=== PATIENT | male | born 1970 | race Caucasian/White ===

== ENCOUNTER 2025-09-06 20:20 | Emergency (ER) | payer OTHER ==
[~2025-09-06] VITALS: Ht 167.6 cm; Wt 74.8 kg
[2025-09-06 20:58] LABS: PLATELET COUNT (AUTO) 302 K/uL (152-348); RED BLOOD CELL COUNT(AUTO) 4.39 MIL/uL (4.06-5.63); RED CELL DISTRIBUTION WIDTH 13.6 % (12.1-16.2); WHITE BLOOD COUNT (AUTO) 4.6 K/uL (3.6-10.2)
[2025-09-06 21:00] VITALS: BP 128/77
[2025-09-06 21:07] LABS: CREATININE 1.6 mg/dL (0.6-1.3); SODIUM SERUM 142.0 mmol/L (136-145); UREA NITROGEN, BLOOD 18.0 mg/dL (7-18)
[2025-09-06 21:22] LABS: ASPARTATE AMINOTRANSFERASE 24.0 U/L (15-37); TOTAL PROTEIN, SERUM 7.0 g/dL (6.4-8.2)
[2025-09-06] MEDS: IV NORMAL SALINE 1000 ML BAG IV ONE (21:36)
[2025-09-06 21:40] VITALS: BP 130/70; TEMP 98.2; O2SAT 100
== END 2025-09-06 21:41 | disposition home or self-care (01) ==
LOC: ER 20:32
DX: R55 Syncope and collapse (principal); Z88.0 Allergy status to penicillin
CPT/HCPCS: 36415; 83605; 84484; 85025; 85730; A4606; A4663